=== PATIENT | male | born 1995 | race Two or more races ===

== ENCOUNTER 2024-05-06 05:01 | Emergency (ER) | payer OTHER ==
[~2024-05-06] VITALS: Ht 177.8 cm; Wt 125.0 kg
[2024-05-06 05:05] VITALS: PULSE 86; RESP 16; TEMP 98.2; O2SAT 96
[2024-05-06 05:12] VITALS: BP 149/82; PULSE 95; RESP 16; O2SAT 96
[2024-05-06] MEDS ORDERED: AUG875T PO (05:30)
--- NOTE | 2024-05-06 05:30 | ED.PDOC ---
History of Present Illness(SKN Chief Complaint: Puncture Wound Time Seen by MD: 05:05 Primary Care Provider: N/A History of Present Illness: Windows Consultant Notes, Medications, Allergies Allergies: Coded Allergies: No Known Drug Allergy (Verified Allergy, Unknown, 05/06/24) Home Meds Active Scripts Amoxicillin & Pot Clavulanate (AUGMENTIN TABLET) 875 Mg Tb, 1 TAB PO BID for 7 Days, #14 TAB Prov:MACI TEJADA 05/06/24 Information Source: Patient Mode of Arrival: Ambulatory X-Ray, Labs, Meds, VS Vital Signs Date Time Temp Pulse Resp B/P (MAP) Pulse Ox O2 Delivery O2 Flow Rate FiO2 05/06/24 05:12 98.2 95 16 149/82 (104) 96 05/06/24 05:05 86 16 96 Room Air* 0 21 Time of 1ST Reevaluation: 05:36 Reevaluation 1ST: Improved Patient Education/Counseling: Diagnosis, Treatment, Prognosis, Need For Follow Up Family Education/Counseling: No Family Present Departure 1 Departure Time of Disposition: 05:36 Impression: Primary Impression: Puncture wound of foot, left Qualified Codes: S91.332A - Puncture wound without foreign body, left foot, initial encounter Disposition: 01 HOME / SELF CARE / HOMELESS Condition: Stable e-Prescriptions Amoxicillin & Pot Clavulanate (AUGMENTIN TABLET) 875 Mg Tb 1 TAB PO BID for 7 Days, #14 TAB Prov: MACI TEJADA 05/06/24 Critical Care Note Critical Care Time?: No Stability Stability form required: MACI Lopez May 06, 2024 05:30
[2024-05-06] MEDS: TETANUS-DIPTH-ACEL PERTUSSIS 0.5ML SYR Tdap IM ONE (05:38)
--- NOTE | 2024-05-06 05:38 | DVH ---
CLINICAL INDICATION: NAIL INJURY PAIN TECHNIQUE: XY L FOOT 3 VIEW XRAY Comparison: None FINDINGS/IMPRESSION: : There is no evidence of acute fracture or dislocation. Soft tissues are unremarkable. No appreciable radiopaque foreign body.
== END 2024-05-06 05:50 | disposition home or self-care (01) ==
LOC: ER 05:01
DX: S91.332A Puncture wound without foreign body, left foot, initial encounter (principal); X58.XXXA Exposure to other specified factors, initial encounter; Y93.89 Activity, other specified; Y92.69 Other specified industrial and construction area as the place of occurrence of the external cause; Y99.8 Other external cause status
CPT/HCPCS: 73630; 90471; 90715